=== PATIENT | male | born 1955 | race Caucasian/White ===

== ENCOUNTER 2018-10-08 13:33 | Emergency (ER) | payer OTHER ==
[~2018-10-08] VITALS: Ht 167.6 cm; Wt 81.6 kg
--- NOTE | 2018-10-08 13:46 | NUR ---
ALOC, severe hyperactvity- his fellow AA member called 911 BS = 121 mm/dl ; denies taking any drugs. PT REFUSING TO GO IN ROOM, SITTING IN HALLWAY. SECURITY CALLED TO ENCOURAGE HIM TO BED. VERY ERRATIC BEHAVIOR, FLIGHT OF IDEAS. TO ER BED 6, ON MONITOR, READY FOR EVAL.
[2018-10-08] MEDS ORDERED: OLANZAPINE 10 MG VIAL IM ONE ×5 (13:51→23:00)
[2018-10-08] MEDS ORDERED: LORAZEPAM INJ 2 MG/ML VIAL ONE ×2 (13:51→22:56)
--- NOTE | 2018-10-08 13:59 | NUR ---
VERIFIED ORDERS WITH DR DELCID. ZYPREXA 10MG IM AND ATIVAN 2MG IM GIVEN, DUPLICATE ORDERS FOR ZYPREXA AND ATIVAN VERIFIED, ONLY TO GIVE 1 DOSE OF ZYPREXA AND ATIVAN. ADMINISTERED ORDERED
[2018-10-08] MEDS ORDERED: LORAZEPAM INJ 2 MG/ML VIAL IM ONE ×3 (14:00→23:00)
[2018-10-08 14:07] LABS: BASOPHILS % (AUTO) 0.5 % (0.0-2.0); EOSINOPHILS % (AUTO) 0.6 % (0.0-6.0); HEMATOCRIT 49 % (39-51); HEMOGLOBIN 16.8 g/dL (13.5-17.5); LYMPHOCYTES # (AUTO) 2.9 /CMM (0.8-4.8); MEAN CORPUSCULAR HGB CONC 34 g/dl (31.0-36.0); MEAN CORPUSCULAR VOLUME 96 fL (80-96); MONOCYTES # (AUTO) 1.3 /CMM (0.1-1.30); MONOCYTES % (AUTO) 13.1 % (2.0-12.0); NEUTROPHILS # (AUTO) 5.4 /CMM (1.8-8.9); NEUTROPHILS % (AUTO) 55.8 % (43.0-81.0); PLATELET COUNT (AUTO) 209 /CMM (150-450); RED BLOOD CELL COUNT(AUTO) 5.14 MIL/uL (4.5-6.0); WHITE BLOOD COUNT (AUTO) 9.7 K/uL (4.3-11.0)
[2018-10-08 14:22] LABS: CALCIUM, SERUM 9.4 mg/dL (8.5-10.1); CARBON DIOXIDE 25 mmol/L (21-32); CHLORIDE 106 mmol/L (98-107); CREATININE 1.3 mg/dL (0.6-1.3); GLUCOSE 103 mg/dL (74-106); POTASSIUM 4.8 mmol/L (3.5-5.1); SODIUM SERUM 143 mmol/L (136-145); UREA NITROGEN, BLOOD 22 mg/dL (7-18)
[2018-10-08 14:26] LABS: ACETAMINOPHEN 0 ug/ml (10-30); ALANINE AMINOTRANSFERASE 37 U/L (12-78); ALBUMIN 4.6 g/dL (3.4-5.0); ALCOHOL, BLOOD < 3 mg/dL (0-0); ALKALINE PHOSPHATASE 86 U/L (46-116); ASPARTATE AMINOTRANSFERASE 31 U/L (15-37); BILIRUBIN,DIRECT 0.1 mg/dL (0.0-0.2); BILIRUBIN,TOTAL 0.6 mg/dL (0.2-1.0); SALICYLATE 1.1 mg/dL (2.8-20.0); TOTAL PROTEIN, SERUM 8.4 g/dL (6.4-8.2)
--- NOTE | 2018-10-08 16:28 | NUR ---
URINE COLLECTED AND SENT TO STAT LAB
--- NOTE | 2018-10-08 16:50 | NUR ---
ESA VALDEZ AT BEDSIDE FOR EVAL.
[2018-10-08 17:08] LABS: APPEARANCE,URINE Clear (CLEAR); BILIRUBIN,URINE Negative (NEGATIVE); BLOOD, URINE Trace-intact Ery/uL (NEGATIVE); COLOR,URINE Dark (YELLOW); KETONES,URINE Negative (NEGATIVE); LEUKOCYTE ESTERASE ,URINE Negative (NEGATIVE); NITRITE, URINE Negative (NEGATIVE); PH,URINE 5.5 (5.0-8.0); PROTEIN,URINE Negative (NEGATIVE); UGLUCOSE Negative (NEGATIVE); UROBILINOGEN,URINE 0.2 EU/dL (0.2)
[2018-10-08 17:13] LABS: BACTERIA,URINE Rare /HPF (None Seen); SQUAMOUS EPITHELIAL CELL,UR Few /HPF (None Seen); WBC,URINE NONE SEEN /HPF (0-3)
--- NOTE | 2018-10-08 18:18 | NUR ---
CALLED ENA MONTEMAYOR AND LEFT A MESSAGE REGARDING ER WANTING TO SPEAK TO HER
--- NOTE | 2018-10-08 19:12 | NUR ---
CALLED ENA MONTEMAYOR AND LEFT A MESSAGE REGARDING ER WANTING TO SPEAK TO HER
--- NOTE | 2018-10-08 19:57 | NUR ---
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 WILL ARRIVE IN A HOUR
--- NOTE | 2018-10-08 21:01 | NUR ---
PT GIVEN FOOD, JUICE, AND BLANKET FOR COMFORT.
--- NOTE | 2018-10-08 21:20 | NUR ---
TREE TRIMMING SUPERVISOR PINKY AT BEDSIDE FOR EVAL.
--- NOTE | 2018-10-08 22:25 | NUR ---
ACCEPTED TO [facility], NUMBER FOR REPORT [phone].
--- NOTE | 2018-10-08 23:28 | NUR ---
AMBULANCE ETA 0000. [facility]
[2018-10-08 23:34] VITALS: BP 111/72
[2018-10-08] MEDS ORDERED: IBUPROFEN 600 MG TABLET PO ONE (23:56)
--- NOTE | 2018-10-08 23:58 | NUR ---
REPORT GIVEN TO KENIA SOTO AT [facility]
[2018-10-09] MEDS ORDERED: IBUPROFEN 600 MG TABLET PO ONE (00:30)
== END 2018-10-09 00:59 | disposition short-term general hospital (02) ==
LOC: ER 13:39
DX: F29 Unspecified psychosis not due to a substance or known physiological condition (principal); F60.0 Paranoid personality disorder; F78 Other intellectual disabilities; E11.9 Type 2 diabetes mellitus without complications; I10 Essential (primary) hypertension; F31.9 Bipolar disorder, unspecified; R45.1 Restlessness and agitation; F10.10 Alcohol abuse, uncomplicated; F12.10 Cannabis abuse, uncomplicated; Y90.0 Blood alcohol level of less than 20 mg/100 ml
CPT/HCPCS: 36415; 80048; 80076; 80305; 80307; 80329; 81001; 85025; 96372 ×4; 99285; G0480; J2060 ×2; J3490 ×2; 81000-TC

== ENCOUNTER 2024-06-03 16:21 | Emergency (ER) | payer BC, OTHER ==
[~2024-06-03] VITALS: Ht 170.2 cm; Wt 86.2 kg
[2024-06-03 16:28] VITALS: TEMP 98.3
[2024-06-03 16:37] VITALS: BP 163/86; O2SAT 95
[2024-06-03 17:24] LABS: BASOPHILS # (AUTO) 0.1 K/uL (0.0-0.2); BASOPHILS % (AUTO) 0.6 % (0.0-2.0); EOSINOPHILS # (AUTO) 0.2 K/uL (0.0-0.7); EOSINOPHILS % (AUTO) 1.7 % (0.0-6.0); HEMATOCRIT 50 % (39-51); LYMPHOCYTES # (AUTO) 1.8 K/uL (0.8-4.8); LYMPHOCYTES % (AUTO) 18.3 % (20.0-44.0); MEAN CORPUSCULAR HEMOGLOBIN 31 PG (26.0-33.0); MEAN CORPUSCULAR HGB CONC 34 g/dl (31.0-36.0); MEAN CORPUSCULAR VOLUME 91 fL (80-96); MONOCYTES # (AUTO) 0.9 K/uL (0.1-1.30); MONOCYTES % (AUTO) 9.2 % (2.0-12.0); NEUTROPHILS # (AUTO) 6.7 K/uL (1.8-8.9); NEUTROPHILS % (AUTO) 70.2 % (43.0-81.0); PLATELET COUNT (AUTO) 179 K/uL (150-450); RED BLOOD CELL COUNT(AUTO) 5.48 MIL/uL (4.5-6.0); RED CELL DISTRIBUTION WIDTH 13.9 % (11.5-15.0); WHITE BLOOD COUNT (AUTO) 9.6 K/uL (4.3-11.0)
[2024-06-03] MEDS ORDERED: ACETAMINOPHEN 325 MG TABLET ONE (17:26)
[2024-06-03] MEDS: ACETAMINOPHEN 325 MG TABLET PO ONE (17:32)
[2024-06-03 17:41] LABS: CALCIUM, SERUM 9.2 mg/dL (8.5-10.1); CARBON DIOXIDE 24 mmol/L (21-32); CHLORIDE 108 mmol/L (98-107); GLUCOSE 96 mg/dL (74-106); SODIUM SERUM 142 mmol/L (136-145); UREA NITROGEN, BLOOD 18 mg/dL (7-18)
[2024-06-03 17:48] LABS: ALANINE AMINOTRANSFERASE 20 U/L (12-78); ALBUMIN 3.8 g/dL (3.4-5.0); ALKALINE PHOSPHATASE 88 U/L (46-116); ASPARTATE AMINOTRANSFERASE 21 U/L (15-37); BILIRUBIN,DIRECT 0.1 mg/dL (0.0-0.2); BILIRUBIN,TOTAL 0.5 mg/dL (0.2-1.0); TOTAL PROTEIN, SERUM 7.6 g/dL (6.4-8.2)
== END 2024-06-03 19:14 | disposition home or self-care (01) ==
LOC: ER 16:45
DX: S09.90XA Unspecified injury of head, initial encounter (principal); I10 Essential (primary) hypertension; E11.9 Type 2 diabetes mellitus without complications; F31.9 Bipolar disorder, unspecified; V09.9XXA Pedestrian injured in unspecified transport accident, initial encounter; Y93.89 Activity, other specified; Y92.89 Other specified places as the place of occurrence of the external cause; Y99.8 Other external cause status
CPT/HCPCS: 36415; 70450-TC; 71045-TC; 72125-TC; 80048-TC; 80076-TC; 82962-TC; 84484-TC; 85025-TC

== ENCOUNTER 2024-09-11 15:01 | Emergency (ER) | payer BC, MEDICAID ==
[~2024-09-11] VITALS: Ht 170.2 cm; Wt 88.5 kg
[2024-09-11 15:12] VITALS: BP 174/80; TEMP 98.3
[2024-09-11] MEDS ORDERED: IBUP-1953 PO (15:34)
[2024-09-11] MEDS ORDERED: KETOROLAC TROMETHAMINE 15 MG/ML VIAL ONE (15:36)
[2024-09-11] MEDS: KETOROLAC TROMETHAMINE 15 MG/ML VIAL IM ONE (15:39)
[2024-09-11 15:40] VITALS: O2SAT 98
== END 2024-09-11 15:41 | disposition home or self-care (01) ==
LOC: ER 15:05
DX: M47.899 Other spondylosis, site unspecified (principal); I10 Essential (primary) hypertension; E11.9 Type 2 diabetes mellitus without complications; Z76.0 Encounter for issue of repeat prescription
CPT/HCPCS: 99283; 96372; J1885

== ENCOUNTER 2024-10-12 16:36 | Emergency (ER) | payer BC, MEDICAID ==
[~2024-10-12] VITALS: Ht 170.2 cm; Wt 89.4 kg
[~2024-10-12 16:36] MED LIST: IBUP-1953 PO
[2024-10-12 16:39] VITALS: BP 132/61; TEMP 98
[2024-10-12] MEDS ORDERED: IBUP-1953 PO (16:55)
[2024-10-12] MEDS ORDERED: KETOROLAC TROMETHAMINE INJ 30 MG/ML VIAL ONE (16:59)
[2024-10-12 17:03] VITALS: O2SAT 97
[2024-10-12] MEDS: KETOROLAC TROMETHAMINE INJ 30 MG/ML VIAL IM ONE (17:03)
== END 2024-10-12 17:04 | disposition home or self-care (01) ==
LOC: ER 16:36
DX: M47.9 Spondylosis, unspecified (principal); M54.50 Low back pain, unspecified; M19.90 Unspecified osteoarthritis, unspecified site; I10 Essential (primary) hypertension; E11.9 Type 2 diabetes mellitus without complications; F17.200 Nicotine dependence, unspecified, uncomplicated; Z79.1 Long term (current) use of non-steroidal anti-inflammatories (NSAID); Z60.2 Problems related to living alone
CPT/HCPCS: 99283; 96372; J1885

== ENCOUNTER 2024-11-28 19:10 | Emergency (ER) | payer BC, MEDICAID ==
[~2024-11-28] VITALS: Ht 167.6 cm; Wt 104.3 kg
[2024-11-28 19:56] VITALS: BP 146/88; TEMP 97.8; O2SAT 97
== END 2024-11-28 19:56 | disposition home or self-care (01) ==
LOC: ER 19:11
DX: R41.3 Other amnesia (principal); I10 Essential (primary) hypertension; E11.9 Type 2 diabetes mellitus without complications; F31.9 Bipolar disorder, unspecified; F43.20 Adjustment disorder, unspecified; G89.29 Other chronic pain; M19.90 Unspecified osteoarthritis, unspecified site; Z79.1 Long term (current) use of non-steroidal anti-inflammatories (NSAID)

== ENCOUNTER 2024-12-15 16:47 | Emergency (ER) | payer BC, MEDICAID ==
[~2024-12-15] VITALS: Ht 167.6 cm; Wt 86.2 kg
[2024-12-15] MEDS ORDERED: IBUP-1953 PO (17:16)
[2024-12-15 17:33] VITALS: BP 150/87; TEMP 98.7; O2SAT 99
== END 2024-12-15 17:33 | disposition home or self-care (01) ==
LOC: ER 16:47
DX: M19.90 Unspecified osteoarthritis, unspecified site (principal); Z76.0 Encounter for issue of repeat prescription; I10 Essential (primary) hypertension; E11.9 Type 2 diabetes mellitus without complications; F31.9 Bipolar disorder, unspecified; Z79.1 Long term (current) use of non-steroidal anti-inflammatories (NSAID)